=== PATIENT | male | born 1990 | race Caucasian/White ===

== ENCOUNTER 2018-05-22 13:28 | Emergency (ER) | payer OTHER ==
--- OUTSIDE RECORDS SUMMARY | 2018-05-22 13:40 | XMS REPORT | Continuity of Care Document ---
:1990 External Reference #:[id number] Author Name Aixa Rivas PA Address [address] [place] [address] Care Team Providers Name Role Phone Aixa Rivas PA Care Team Information Mechanical Handyman Unavailable Aixa Rivas PA Primary Care Physician Unavailable Payers Type Date Identification Numbers Payment Provider Subscriber Policy Number: [id number] [employer] Medicaid Abdi Nova PayID: [id number] [address] [place] [address] Advance Directives Description No Information Available Problems Description No Information Family History Date Family Member(s) Problem(s) Comments Father Bipolar Disorder Schizophrenia Mother No Current Problems Maternal Grandfather due to Heart () Attack : (age 70 Maternal Grandmother due to Stroke Years) Social History Type Date Description Comments Sex Unknown Lives With Father Prakash Lives With Grandmother Caroline Diet Patient follows no dietary Vegetarian. 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 ADL's/IADL's Independent with all ADL's ETOH Use Currently consumes alcohol On weekends between 2-6 drinks Tobacco Use Start: Unknown End: Patient is a former smoker quit 01/10/18 Unknown Smoking Status Reviewed: 04/30/18 Patient is a former smoker quit 01/10/18 Allergies, Adverse Reactions, Alerts Description No Known Drug Allergies Medications Medication Date Status Form Strength Qnty SIG Indications Ordering Provider Hair Skin & Nails 00// Active Chewtabs 1250-7.5-7 Two Unknown Gummies 0000 .5mcg-mg-U gummies nt once a day Estradiol 00/00/ Active Tablets 2mg 2mg tab Unknown 0000 po 3x daily Spironolactone / Active Tablets 50mg 1 by Unknown 0000 mouth 3x daily Finasteride / Active Tablets 1mg one tab Unknown 0000 po daily Prometrium / Active Capsules 200mg 1 cap by Unknown 0000 mouth every day at bedtime Immunizations CPT Code Status Date Vaccine Lot # [id number] Given 01/10/2018 Influenza Virus Vaccine, Quadrivalent, 36 Mos+, [id number] Given 10/02/2017 Tdap injection [id number] Vital Signs Date Vital Result Comment 04/30/2018 3:12pm BP Systolic 142 mmHg BP Diastolic 82 mmHg Body Temperature 97.9 F Heart Rate 107 /min Weight 231.12 lb O2 % BldC Oximetry 98 % 01/10/2018 2:55pm BP Systolic Sitting Right Arm 120 mmHg BP Diastolic Sitting Right Arm 62 mmHg Body Temperature 97.8 F Heart Rate 84 /min Weight 213.00 lb O2 % BldC Oximetry 99 % 10/02/2017 3:29pm BP Systolic Sitting Left Arm 124 mmHg BP Diastolic Sitting Left Arm 82 mmHg Body Temperature 98.3 F Heart Rate 77 /min Height 70.5 inches 5'10.50" Weight 208.38 lb BMI (Body Mass Index) 29.5 kg/m2 BSA (Body Surface Area) 2.14 m2 [place] body weight in kilograms 77 kg O2 % BldC Oximetry 98 % Results Test Date Facility Test Result H/L Range Note CBS 10/05/[address] [facility] [address] White Blood 3.9 K/uL N 3.4-10.5 1 W/Automated [address] [place] [address] [phone] Red Blood Count 4.55 M/uL N 4.20-5.80 Hemoglobin 14.3 gm/dL N 12.8-17.0 Hematocrit 41.5 % N 38.0-48.0 Mean Cell Volume 91.2 fl N 80.0-96.0 Mean Corpuscular HGB 31.4 pg N 27.0-33.0 Mean Corpuscular HGB Conc 34.5 g/dL N 31.7-36.0 Platelet Count 211 K/uL N 155-360 Red Cell Distri Width SD 43.0 fl N 36-51 Red Cell Distri Width %CV 13.2 % N 11.6-15.8 Mean Platelet Volume 10.0 fL N 6.6-10.6 Neut% 55.2 % N 33.0-73.0 Lymph % 28.5 % N 20.0-42.0 [place] % 8.0 % N 0.0-10.0 Eo% 7.5 % High 0.0-6.6 Bas% 0.8 % N 0.0-1.1 Neut# 2.15 K/uL N 1.8-7.0 Lymph # 1.11 K/uL N 1.0-4.0 [place] # 0.31 K/uL N 0.0-0.8 Eos # 0.29 K/uL N 0.0-0.5 Baso # 0.03 K/uL N 0.0-0.1 Comprehensive Metabolic 10/05/[address] Glucose 89 mg/dL N 74 -106 Panel [address] [place] [address] [phone] BUN 11 mg/dL N 7-18 Creatinine 0.8 mg/dL N 0.6-1.3 Glom Filtration Rate, Estimate >60 mL/min >60 If >60 mL/min >60 2 BUN/Creat 13.7 ratio Sodium 142 mmol/L N 136-145 Potassium 4.5 mmol/L N 3.5-5.1 Chloride 109 mmol/L High 98-107 Carbon Dioxide 26 mmol/L N 21-32 Anion Gap 7 mEq/L Low 8-16 Calcium 8.6 mg/dL N 8.5-10.1 Total Protein 7.2 g/dL N 6.4-8.2 Albumin 4.0 g/dL N 3.4-5.0 Globulin 3.2 g/dL N 1.9-4.3 Alb/Glob 1.3 ratio Bilirubin,Total 0.6 mg/dL N 0.2-1.0 Sgot/Ast 11 U/L Low 15-37 3 SGPT/Alt 23 U/L N 12-78 Alkaline Phosphatase 48 U/L N 45-117 Reflex add FT3? Y Reflex add FT4? Y LDL Cholesterol Profile 10/05/[address] Cholesterol 138 mg/dL <200 4 [address] [place] [address] [phone] Triglycerides 34 mg/dL <150 5 HDL Cholesterol 57 mg/dL >40 6 LDL-Cholesterol 74 mg/dL < 100 7 Reflex add FT3? Y Reflex add FT4? Y TSH Reflex FT4 10/05/[address] Thyroid Stim 0.47 uIU/mL N 0.30-4.20 And/Or FT3 [address] [place] [address] [phone] Reflex add FT3? Y Reflex add FT4? Y HIV 1/2 10/05/[address] HIV 1/2 [place] Non-Reactive [address] [place] [address] [phone] Chlam/GC/Tr 10/02/[address] Ur Trichomonas Negative Negative [address] vaginalis,PCR PCR, Ur [place], [place] [address] [phone] Ur Chlamydia trachomatis,PCR Negative Negative Ur Neisseria gonorrhoeae,PCR Negative Negative 10 1 Z13.6, Z11.3 2 Note: Persistent reduction for 3 months or more in an eGFR <60 mL/min/1.73 m2 defines CKD. Patients with eGFR values >/=60 mL/min/1.73 m2 may also have CKD if evidence of persistent proteinuria is present. The original MDRD equation for estimated GFR is not valid for patients less than 18 years of age. Additional information may be found at www.kdoqi.org. 3 Values below the stated reference ranges of AST and ALT can be seen in normal populations. Clinical correlation is suggested. 4 Reference Guidelines*: Desirable: ........... < 200 mg/dL Borderline High: ..... 200-239 mg/dL High: ................ >=240 mg/dL * The National Cholesterol Education Program (NCEP) 5 Reference Guidelines*: Normal: ............. < 150 mg/dL Borderline High: .... 150-199 mg/dL High: ............... 200-499 mg/dL Very High: .......... > 500 mg/dL * Source: National Cholesterol Education Program (NCEP) 6 Reference Guidelines*: Low HDL: ..... < 40 mg/dL Normal: ..... 40-60 mg/dL Desirable: ... > 60 mg/dL *The National Cholesterol Education Program(NCEP) 7 Reference Guidelines*: Optimal:........... <100 mg/dL Near Optimal....... 100-129 mg/dL Borderline High.... 130-159 mg/dL High............... 160-189 mg/dL Very High.......... >=190 mg/dL * Source: National Cholesterol Education Program (NCEP) 8 NOTE: A NON-REACTIVE RESULT INDICATES THAT HIV 1/2 ANTIBODIES HAVE NOT BEEN FOUND IN THIS PATIENT SPECIMEN. A NON-REACTIVE RESULT, HOWEVER, DOES NOT PRECLUDE PREVIOUS EXPOSURE OF INFECTION WITH HIV 1/2. Method: Uni-Gold Recombigen HIV 1/2 Rapid Immunoassay DE Spirits * [place] STATE LAW PROHIBITS THE REDISCLOSURE OF THIS RESULT * * TO ANY UNAUTHORIZED [employer]. * 03/21/18 1227: HIV 1/2 [place] previously reported as: Non-Reactive CALL NOT INDICATED, RESULTS THE SAME, REGULATORY COMMENT ADDED Amended result called to: - 03/21/18 at 1227 9 Z11.3 10 A negative result for either C. trachomatis and/or N. gonorrhoeae does not preclued an infection because results are dependent on adequate specimen collection, absence of inhibitors, and sufficient DNA to be detected. Procedures Description No Information Available Encounters Type Date Location Provider Dx Diagnosis Office Visit 01/10/2018 Family Medicine Aixa Rivas PA R03.0 Elevated 3:00p Alen TROY blood-pressure reading, w/o diagnosis of htn Z72.0 Tobacco use Z23 Encounter for immunization Plan of Treatment Future Appointment(s):06/13/2018 4:00 pm - Aixa Rivas PA at [facility] RD01/12/2019 3:15 pm - Aixa Rivas PA at [facility] RD04/30/2018 - Aixa Rivas, PAR03.0 Elevated blood-pressure reading, without diagnosis of hypertComments:Please take BP readings at home. Keep a log. Bring your record to our next appointment to review. Reduce salt in your diet. The DASH diet may help you with this. Remember to stay active .Follow up:6 [id number] Gender identity disorder, unspecifiedComments:Patient is interested in a consult with endocrine. Will set up referral.Referral:No Doctor Selected
[2018-05-22] MEDS ORDERED: Ipratropium 0.5MG/2.5ML NEB* 0.5 MG/2.5 ML NEB.SOLN INH ONE (15:04)
[2018-05-22] MEDS ORDERED: Albuterol 2.5 MG/3 ML NEB.SOL* (0.083%) INH ONE (15:04)
--- NOTE | 2018-05-22 15:21 | UC ---
Respiratory Complaint HPI - HPI Summary HPI Summary: THe pt is a 28 yo with a 2 day hx of cough/nasal congestion and wheezing. No f/c ex smoker...currently vapes hx of bronchitis 2 coworkers ill with similar symptoms - History of Current Complaint Chief Complaint: UCRespiratory Stated Complaint: COUGH,CHEST CONGESTION Time Seen by Provider: 05/22/18 14:56 Hx Obtained From: Patient Onset/Duration: Gradual Onset, Lasting Days Timing: Constant Severity Initially: Mild Severity Currently: Moderate Pain Intensity: 2 Pain Scale Used: 0-10 Numeric Character: Cough: Nonproductive Aggravating Factors: Exertion, Deep Breaths, Recumbent Position Alleviating Factors: Nothing Associated Signs And Symptoms: Positive: Pleuritic Chest Pain - at times during coughing jags, Wheezing, Nasal Congestion - Risk Factors Pulmonary Embolism Risk Factors: Estrogen - Allergies/Home Medications Allergies/Adverse Reactions: Allergies Allergy/AdvReac Type Severity Reaction Status Date / Time No Known Allergies Allergy Verified 05/22/18 14:32 Home Medications: Home Medications Biotin [Biotin Gummies] 1,000 mcg PO DAILY 05/22/18 [History Confirmed 05/22/18] Estradiol [Estrace] 6 mg PO DAILY 05/22/18 [History Confirmed 05/22/18] Finasteride TAB* [Proscar TAB*] 1 mg PO DAILY 05/22/18 [History Confirmed ] Progesterone, Micronized [Prometrium] 200 mg PO DAILY 05/22/18 [History Confirmed 05/22/18] Spironolactone TAB* [Aldactone TAB*] 150 mg PO DAILY 05/22/18 [History Confirmed 05/22/18] PMH/Surg Hx/FS Hx/Imm Hx Previously Healthy: Yes Respiratory History: Bronchitis - Surgical History Surgical History: Yes Surgery Procedure, Year, and Place: right wrist repair - Family History Known Family History: Positive: Hypertension, Other - no hx PE/DVT - Social History Alcohol Use: Weekly Alcohol Amount: twice weekly Substance Use Type: None Smoking Status (MU): Never Smoked Tobacco Type: eCigarettes Amount Used/How Often: vaporizer Review of Systems All Other Systems Reviewed And Are Negative: Yes Constitutional: Positive: Negative Skin: Positive: Negative Eyes: Positive: Negative ENT: Positive: Nasal Discharge, Sinus Congestion Respiratory: Positive: Cough Cardiovascular: Positive: Chest Pain - at times during coughing spells Gastrointestinal: Positive: Negative Genitourinary: Positive: Negative Motor: Positive: Negative Neurovascular: Positive: Negative Musculoskeletal: Positive: Negative Neurological: Positive: Negative Psychological: Positive: Negative Physical Exam Triage Information Reviewed: Yes Appearance: Well-Appearing, No Pain Distress, Well-Nourished Vital Signs: Initial Vital Signs Temp 98.5 F 05/22/18 14:34 Pulse 101 05/22/18 14:34 Resp 17 05/22/18 14:34 BP 145/78 05/22/18 14:34 Pulse Ox 100 05/22/18 14:34 Vital Signs Reviewed: Yes Eyes: Positive: Conjunctiva Clear ENT: Positive: Hearing grossly normal, Nasal congestion, TMs normal, Uvula midline. Negative: Nasal drainage, Tonsillar swelling, Tonsillar exudate, Trismus, Muffled voice, Hoarse voice, Sinus tenderness Neck: Positive: Supple, Nontender, No Lymphadenopathy Respiratory: Positive: No respiratory distress, No accessory muscle use, Wheezing Cardiovascular: Positive: RRR, No Murmur Musculoskeletal: Positive: ROM Intact, No Edema Neurological: Positive: Alert Psychological Exam: Normal Skin Exam: Normal UC Diagnostic Evaluation - Laboratory O2 Sat by Pulse Oximetry: 100 - normal not hypoxic Re-Evaluation - Re-Evaluation First Eval Re-Evaluation Time: 16:00 Change: Improved Comment: feels much improved after neb, peak flow improved Respiratory Course/Dx - Differential Dx/Diagnosis Provider Diagnosis: Acute bronchitis, viral Discharge - Sign-Out/Discharge Documenting (check all that apply): Patient Departure All imaging exams completed and their final reports reviewed: No Studies - Discharge Plan Condition: Improved Disposition: HOME Prescriptions: predniSONE [Deltasone 20 MG TAB] 40 mg PO DAILY #8 tab Patient Education Materials: Acute Bronchitis (ED), How to Use a Metered-Dose Inhaler and a Spacer (ED) Referrals: Aixa Rivas PA [Primary Care Provider] - 4 Days - Billing Disposition and Condition Condition: IMPROVED Disposition: Home
[2018-05-22 15:45] VITALS: BP 125/65
[2018-05-22] MEDS ORDERED: predniSONE TAB* 20 MG PO ONE (15:58)
[2018-05-22] MEDS ORDERED: Albuterol HFA INHALER* 8 gm MDI INH ONE (15:58)
== END 2018-05-22 16:30 | disposition home or self-care (01) ==
LOC: UCCORT 13:28
DX: J20.8 Acute bronchitis due to other specified organisms (principal); R09.81 Nasal congestion
CPT/HCPCS: 99203; A9270-GY; G0463; J7512